=== PATIENT | male | born 1990 | race American Indian/Alaskan Native ===

== ENCOUNTER 2016-12-14 12:51 | Emergency (ER) | payer OTHER ==
[2016-12-14] MEDS ORDERED: MOTRIN PO ONE (18:38)
[2016-12-14 18:46] VITALS: BP 149/93
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
== END 2016-12-14 20:28 | disposition home or self-care (01) ==
LOC: ED 12:51
DX: M25.561 Pain in right knee (principal); M54.6 Pain in thoracic spine; F17.200 Nicotine dependence, unspecified, uncomplicated; Z98.890 Other specified postprocedural states; Z91.048 Other nonmedicinal substance allergy status; V89.2XXA Person injured in unspecified motor-vehicle accident, traffic, initial encounter; Y93.9 Activity, unspecified; Y92.410 Unspecified street and highway as the place of occurrence of the external cause; Y99.9 Unspecified external cause status
CPT/HCPCS: 99282